=== PATIENT | female | born 2000 | race African-American/Black ===

== ENCOUNTER 2021-12-08 23:58 | Emergency (ER) | payer OTHER ==
[~2021-12-08] VITALS: Ht 172.7 cm; Wt 55.8 kg
[2021-12-09 00:10] VITALS: BP_SYST 111
--- NOTE | 2021-12-09 00:15 | NUR ---
Placed in room 5 . Placed on security monitor, blood pressure machine and pulse oximeter. To gown for exam. Side rails up. Report given to JUSTICE DIA.
--- NOTE | 2021-12-09 00:20 | NUR ---
First contact. Pt presently on monitor. Pt drowsy and slurred speech. Mother present in room at this time.
--- NOTE | 2021-12-09 00:23 | NUR ---
Patient admits to taking an unknown amount of ativan and seroquel that she retrieved (without permission) from her mother. Mother confirms same story. Pt denies attempting to kill herself and states that she only took the medicine to help her relax. Pt's mother states that the patient was all ready drunk.
[2021-12-09] MEDS ORDERED: NALOXONE HCL 2 MG/2 ML SYR ONE (00:49)
[2021-12-09 00:50] LABS: BASOPHILS # (AUTO) 0.1 K/uL (0.0-0.2); BASOPHILS % (AUTO) 2.8 % (0.0-2.0); EOSINOPHILS # (AUTO) 0.3 K/uL (0.0-0.4); EOSINOPHILS % (AUTO) 4.9 % (0.0-4.0); HEMATOCRIT 29.9 % (36-48); HEMOGLOBIN 9.5 g/dL (12.0-16.0); LYMPHOCYTES # (AUTO) 1.6 K/uL (1.0-5.5); LYMPHOCYTES % (AUTO) 31.2 % (20.5-51.5); MEAN CORPUSCULAR HEMOGLOBIN 23 pg (27-31); MEAN CORPUSCULAR HGB CONC 32 % (32-36); MEAN CORPUSCULAR VOLUME 72 fL (79.0-98.0); MONOCYTES # (AUTO) 0.2 K/uL (0.0-1.0); MONOCYTES % (AUTO) 4.7 % (1.7-9.3); NEUTROPHILS # (AUTO) 2.9 K/uL (1.8-7.7); NEUTROPHILS % (AUTO) 56.4 % (40.0-70.0); PLATELET COUNT (AUTO) 341 K/uL (130-430); RED BLOOD CELL COUNT(AUTO) 4.14 MIL/uL (4.2-6.2); RED CELL DISTRIBUTION WIDTH 17.6 % (9.0-15.0); WHITE BLOOD COUNT (AUTO) 5.1 K/uL (4.8-10.8)
[2021-12-09 01:00] LABS: ANION GAP 11 (5-15); CALCIUM 8.1 mg/dL (8.4-11.0); CHLORIDE 103 mmol/L (98-107); GLUCOSE 89 mg/dL (70-99); POTASSIUM 3.2 mmol/L (3.5-5.1); SODIUM SERUM 140 mmol/L (136-145); UREA NITROGEN, BLOOD 8 mg/dL (8-21)
[2021-12-09 01:07] LABS: ACETAMINOPHEN 5 ug/mL (1-30); ALANINE AMINOTRANSFERASE 14 U/L (12-78); ALBUMIN 3.8 g/dL (3.4-4.8); ALCOHOL, BLOOD 200 mg/dL (<10); ASPARTATE AMINOTRANSFERASE 18 U/L (10-37); TOTAL BILIRUBIN 0.1 mg/dL (0.0-1.0)
--- NOTE | 2021-12-09 01:07 | NUR ---
PT STRAIGHT CATHED BY RN AND FEMALE TECH USING STERILE TECHNIQUE. PT URINE SAMPLE OBTAINED AND SAMPLE SENT TO THE LAB. WILL MONITOR PT CLOSELY
[2021-12-09] MEDS ORDERED: NALOXONE HCL 2 MG/2 ML SYR (NARCAN) IVP ONE (01:15)
[2021-12-09 01:19] LABS: GFR AFRICAN AMERICAN 116 mL/min (>90)
[2021-12-09 01:24] LABS: BILIRUBIN,URINE NEGATIVE (NEGATIVE); BLOOD, URINE NEGATIVE (NEGATIVE); CLARITY/URINE CLEAR (CLEAR); COLOR,URINE YELLOW (YELLOW); GLUCOSE,URINE NEGATIVE (NEGATIVE); KETONES,URINE NEGATIVE (NEGATIVE); LEUKOCYTE ESTERASE ,URINE NEGATIVE (NEGATIVE); NITRITE, URINE NEGATIVE (NEGATIVE); PROTEIN URINE NEGATIVE (NEGATIVE); UROBILINOGEN,URINE 0.2 (0.2-1.0)
--- NOTE | 2021-12-09 01:28 | NUR ---
COVID sample sent to lab at 01:26.
[2021-12-09 01:39] LABS: BENZODIAZEPINE, URINE POSITIVE (NEG <=150); CANNABINOID, URINE POSITIVE (NEG <=50)
[2021-12-09 01:40] LABS: BARBITURATE, URINE NEGATIVE (NEG <=200); COCAINE, URINE NEGATIVE (NEG <=150); METHAMPHETAMINES SCREEN,URINE NEGATIVE (NEG <=500); OPIATE, URINE NEGATIVE (NEG <=100); PHENCYCLIDINE SCREEN,URINE NEGATIVE (NEG <=25); UR TRICYCLIC ANTIDEPRESSANTS POSITIVE (NEG <=300); URINE AMPHETAMINE NEGATIVE (NEG <=500); URINE METHADONE NEGATIVE (NEG <=200); URINE OXYCODONE SCREEN NEGATIVE (NEG <=100); URINE PROPOXYPHENE SCREEN NEGATIVE (NEG <=300)
[2021-12-09] MEDS ORDERED: NACL 0.9% 1,000 ML IV ONE (02:00)
--- NOTE | 2021-12-09 02:10 | NUR ---
Called Poison Control at [phone] and spoke with Walter . Instructed to Continue to keep look out for worsening [employer]/Resp depression, ivf and/or pressors for bp management, benzo medicine for seizure breakthrough. Per recommendations:obtain 12 lead ekg (prolonged qt interval), alcohol, tylenol, aspirin levels and patient must be monitored for at least [address] Sloan notified. Will continue to monitor patient.
--- NOTE | 2021-12-09 02:15 | NUR ---
Pt called her mother a bitch while laughing.
--- NOTE | 2021-12-09 05:30 | NUR ---
Pt proven to be a flight risk. Pt desired her clothes and phone and then started to head out of the er ems exit. supervisor ovens notified and ER physician agrees that patient requires 1:1 sitter at this time.
--- NOTE | 2021-12-09 06:45 | NUR ---
Psychiatrist assessing patient. Mother present in room and 1:1 sitter at bedside as well.
--- NOTE | 2021-12-09 08:00 | NUR ---
Pt resting quietly in no distress awaiting psych assessment from Psychiatrist.
--- NOTE | 2021-12-09 09:00 | NUR ---
Dr. Avila at bedside evaluating pt. 5150 hold written for DTS.
--- NOTE | 2021-12-09 09:49 | NUR ---
VITAL SIGNS BP 127/59 HR 75 SAT 100% RR 12 PATIENT HAS NO SIGNS OR SYPTOMS OF PAIN
--- NOTE | 2021-12-09 10:50 | NUR ---
Report given to IFEOMA Gaytan at [facility]. Pt medically cleared for transfer per Dr. Barnes.
[2021-12-09] MEDS ORDERED: POTASSIUM CHLORIDE 20 MEQ/PKT PACKET PO ONE (11:00)
--- NOTE | 2021-12-09 11:22 | NUR ---
Report given to IFEOMA Bennett.
[2021-12-09 12:05] VITALS: BP_SYST 118
--- NOTE | 2021-12-09 12:05 | NUR ---
Patient to be transferred to [facility]. Is being transferred due to her needing psych treatment. Receiving facility has accepting physician (Dr. Avila)and available space. ER physician has signed transfer form. Patient or responsible libertarian has agreed to transfer and signed form. Patient belongings inventoried and will be sent with patient. Copy of nursing notes, lab reports, EKG, Physicians Orders and X-rays to be sent with patient. Report called to at receiving facility. Receiving physician is [place]. Ambulance service has been called for transfer.
== END 2021-12-09 12:05 ==
LOC: SED 23:58
DX: T43.592A Poisoning by other antipsychotics and neuroleptics, intentional self-harm, initial encounter (principal); Z79.899 Other long term (current) drug therapy; Z20.822 Contact with and (suspected) exposure to COVID-19; Y92.89 Other specified places as the place of occurrence of the external cause
CPT/HCPCS: 36415; 80053; 80307; 81003; 81025; 82550; 85025; 87426; 93005; 99285; G0480; J2310; G0481; G0482

== ENCOUNTER 2023-07-10 21:43 | Emergency (ER) | payer OTHER ==
[~2023-07-10] VITALS: Ht 165.1 cm; Wt 49.9 kg
[2023-07-10 21:55] VITALS: PULSE 72; RESP 18; TEMP 98.3; O2SAT 100
== END 2023-07-10 22:15 | disposition left against medical advice (07) ==
LOC: SED 21:43
DX: F10.129 Alcohol abuse with intoxication, unspecified (principal); Z53.21 Procedure and treatment not carried out due to patient leaving prior to being seen by health care provider; Y90.6 Blood alcohol level of 120-199 mg/100 ml
CPT/HCPCS: 99281